=== PATIENT | female | born 1995 | race Two or more races ===

== ENCOUNTER 2022-07-09 21:53 | Emergency (ER) | payer OTHER, SELFPAY ==
[2022-07-09 22:09] VITALS: BP 119/71; PULSE 66; RESP 16; TEMP 36.4; O2SAT 98; BMI 31.8
--- NOTE | 2022-07-09 22:13 | ED_ITS ---
HPI - Seizure General Chief Complaint: Seizure Stated Complaint: seizure Time Seen by Provider: 07/09/22 22:10 Source: patient Mode of arrival: EMS Limitations: no limitations History of Present Illness HPI Narrative: Patient history of bipolar disorder pseudoseizures came here for having seizure- like activity since yesterday without any tonic-clonic activity patient felt that she has a weak unable to respond patient remembers having this episodes no postictal finding no tongue bite patient was talking to her boyfriend while having seizure activity patient on Depakote for depression. Patient been having this kind of episode for a while Related Data Allergies Allergy/AdvReac Type Severity Reaction Status Date / Time No Known Allergies Allergy Unverified 05/16/20 19:35 [No Known Allergies*] Review of Systems Review of Systems: Yes all other systems are reviewed and are negative Physical Exam Vital Signs: Vital Signs: Last Vital Signs Temp 97.6 F 07/09/22 22:09 Pulse 66 07/09/22 22:09 Resp 16 07/09/22 22:09 BP 119/71 07/09/22 22:09 Pulse Ox 98 07/09/22 22:09 O2 Del Method 07/09/22 22:09 BMI result Body Mass Index 31.8 Appearance: Alert. Oriented X3. No acute distress. Eyes: PERRLA, No Nystagmus ENT: Pharynx normal. Oral Mucosa moist no tongue biting Neck: Normal inspection. Neck supple. CVS: Normal heart rate and rhythm. Pulses normal. Respiratory: No respiratory distress. Equal air entry bilateral, no wheezing/rales/rhonchi Abdomen: Soft and nontender. Bowel sounds are present, no mass palpable, no CVA tenderness Skin: Skin warm and dry. Normal skin color. Normal skin turgor. Extremities: No lower extremity edema. No calf tenderness Neuro: Oriented X 3. No motor deficit. No sensory deficit.No cerebellar signs , cranial nerves II-XII intact MDM - Seizure MDM Narrative Medical decision making narrative: Patient symptoms likely from pseudo-seizure, and anxiety will check basic labs and give her Ativan Lab Data Attestation: I reviewed the patient's lab results. Result diagrams: 07/09/22 23:02 07/09/22 23:02 Labs: Lab Results 07/09/22 07/09/22 Range/Units 23:02 23:02 WBC 7.7 (4.8-10.8) X10*3/uL RBC 4.30 (4.20-5.50) X10*6/uL Hgb 13.2 (12.0-16.0) g/dl Hct 38.0 (37.0-47.0) % MCV 88.4 (80.0-98.0) fL MCH 30.7 (27.0-33.0) pg MCHC 34.7 (31.0-35.0) g/dl RDW 11.8 (11.0-16.0) % Plt Count 181 (160-400) X10*3/uL MPV 10.3 (9.4-12.3) fL Immature Gran % (Auto) 0.1 (0.0-0.4) % Neut % (Auto) 46.8 (45-73) % Lymph % (Auto) 42.8 H (20-40) % [place] % (Auto) 6.3 (2-11) % Eos % (Auto) 3.6 (0-4) % Baso % (Auto) 0.4 (0-2) % Lymph # (Auto) 3.3 (1.2-4.9) X10*3/uL [place] # (Auto) 0.5 (0.1-1.2) X10*3/uL Eos # (Auto) 0.3 (0.0-0.4) X10*3/uL Baso # (Auto) 0.0 (0.0-0.2) X10*3/uL Abs Immat Gran (auto) 0.01 (0.00-0.03) X10*3/uL Absolute Neuts (auto) 3.6 (2.0-8.3) x10*3/uL Absolute Nucleated RBC 0.000 (0.0-0.012) X10*3/uL Nucleated RBC % (auto) 0.0 (0.0-0.2) /100WBC Sodium 141 (135-145) mmol/L Potassium 3.8 (3.3-5.1) mmol/L Chloride 106 (96-108) mmol/L Carbon Dioxide 23 (22-29) mmol/L Anion Gap 16 (12-20) BUN 16 (9-16) mg/dL Creatinine 0.65 (0.5-1.4) mg/dL Estim Creat Clear Calc 131.5 Estimated GFR > 60 Random Glucose 83 (60-115) mg/dL Calcium 8.6 (8.4-10.2) mg/dL Total Bilirubin 0.2 (0.0-1.0) mg/dL AST 11 (5-31) U/L ALT 9 (0-31) U/L Alkaline Phosphatase 68 (39-117) U/L Total Protein 6.1 L (6.5-8.0) g/dL Albumin 3.9 (3.5-5.0) g/dL Discharge Plan Discharge Clinical Impression: Psychiatric pseudoseizure Patient Disposition: Home, Self-Care Instructions: Nonepileptic Seizures (ED), Conversion Disorder (ED) Additional Instructions: you Do not have any epilepsy you have stress-induced seizure continue medications as prescribed and follow with PCP
[2022-07-09 23:06] LABS: MANUAL DIFF FLAG NO
[2022-07-09 23:07] LABS: Basophils Percent Auto 0.4 % (0-2); Eosinophils Absolute Auto 0.3 X10*3/uL (0.0-0.4); Eosinophils Percent Auto 3.6 % (0-4); Hemoglobin 13.2 g/dl (12.0-16.0); Imm Gran Abs Auto 0.01 X10*3/uL (0.00-0.03); Imm Gran Pct Auto 0.1 % (0.0-0.4); Lymphocytes Absolute Auto 3.3 X10*3/uL (1.2-4.9); Lymphocytes Percent Auto 42.8 % (20-40); Mean Corpuscular HGB Conc 34.7 g/dl (31.0-35.0); Mean Corpuscular Hemoglobin 30.7 pg (27.0-33.0); Mean Corpuscular Volume 88.4 fL (80.0-98.0); Mean Platelet Volume 10.3 fL (9.4-12.3); Monocytes Absolute Auto 0.5 X10*3/uL (0.1-1.2); Monocytes Percent Auto 6.3 % (2-11); Neutrophils Absolute Auto 3.6 x10*3/uL (2.0-8.3); Neutrophils Percent Auto 46.8 % (45-73); Platelet Count 181 X10*3/uL (160-400); Red Cell Distribution Width 11.8 % (11.0-16.0); White Blood Count 7.7 X10*3/uL (4.8-10.8)
[2022-07-09 23:22] LABS: Alanine Aminotransferase 9 U/L (0-31); Albumin Level 3.9 g/dL (3.5-5.0); Alkaline Phosphatase 68 U/L (39-117); Anion Gap 16 (12-20); Aspartate Amino Transferase 11 U/L (5-31); Bilirubin Total 0.2 mg/dL (0.0-1.0); Blood Urea Nitrogen 16 mg/dL (9-16); Calcium 8.6 mg/dL (8.4-10.2); Carbon Dioxide 23 mmol/L (22-29); Chloride 106 mmol/L (96-108); Creatinine Clr Calc Pharmacy 131.5; Estimated Glomerular Filt Rate > 60; Glucose Random 83 mg/dL (60-115); Potassium 3.8 mmol/L (3.3-5.1); Sodium 141 mmol/L (135-145); Total Protein 6.1 g/dL (6.5-8.0)
[2022-07-09 23:47] LABS: Valproate 54.1 mcg/mL (50.0-100.0)
[2022-07-09] MEDS: LORazepam 1 MG TABLET PO (23:57)
[2022-07-10 00:36] VITALS: BP 118/62; PULSE 82; RESP 16; TEMP 36.7; O2SAT 97
== END 2022-07-10 00:37 | disposition home or self-care (01) ==
PROVIDERS: Emergency Provider Internal Medicine
DX: F44.5 Conversion disorder with seizures or convulsions (principal); F31.9 Bipolar disorder, unspecified; Z79.899 Other long term (current) drug therapy
CPT/HCPCS: 36415; 80053; 80164; 85025; 99283; 99284

== ENCOUNTER 2025-01-22 10:36 | Emergency (ER) | payer OTHER, SELFPAY ==
[2025-01-22 10:39] VITALS: BP 130/78; PULSE 107; RESP 16; TEMP 36.3; O2SAT 97; BMI 29.4
--- NOTE | 2025-01-22 10:56 | ED.GENADULT ---
HPI - General Adult General Chief complaint: General Medical Stated complaint: Feels Like Passing Out Time Seen by Provider: 01/22/25 10:56 Source: patient, RN notes reviewed and old records reviewed Mode of arrival: ambulatory Limitations: no limitations History of Present Illness ED Provider: Alka RED narrative: Patient is a 29-year-old female presenting to the emergency department requesting evaluation for sexually transmitted infections. Complains of genital discomfort, is unsure of drainage or discharge. Symptoms for a while, when asked to clarify patient states maybe several weeks. Reports multiple partners, is not using barrier protection. Denies fevers, chills, body aches. Patient guarded, providing limited information/past medical history. MD complaint: concern for STI Onset (ago): week(s) Related Data Previous Rx's ?Medication ?Instructions ?Recorded doxycycline hyclate 100 mg capsule 100 mg PO BID #13 caps 01/22/25 metronidazole 500 mg tablet 500 mg PO BID #14 tabs 01/22/25 Allergies Allergy/AdvReac Type Severity Reaction Status Date / Time No Known Allergies Allergy Verified 01/22/25 10:42 [No Known Allergies*] Review of Systems Review of Systems: As per HPI Yes all other systems are reviewed and are negative PMFSH Social History Social History Advance Directives: No Advance Directives Information Provided: No Do you have a plan to hurt others: No Plan Physical Exam ED Vital Signs: Vital Signs - 24 hr 01/22/25 10:39 01/22/25 12:32 Temperature 97.3 F 97.9 F Pulse Rate 107 H 103 H Respiratory Rate 16 16 Blood Pressure 130/78 128/70 Pulse Oximetry 97 98 Oxygen Delivery Method Room Air Room Air BMI result Body Mass Index 29.4 Vital signs have been reviewed and appear to be correct. Blood pressure normal. Heart rate slightly tachycardic. Respiratory rate normal. Temperature normal. Oxygen saturation normal. Other: Pelvic exam chaperoned by JAGDEEP Reyna External Female Exam: normal external appearance Speculum Exam - Vagina: normal appearance of the vagina Speculum Exam - Cervix: normal appearance of the cervix, Cervical os closed, Abnormal cervical discharge present (bloody/yellow discharge), no lesions and Cervical tenderness present Bimanual exam- vagina & uterus: Cervical tenderness present Medications Administered Discontinued Medications Generic Name Dose Route Start Last Admin Trade Name Tiara PRN Reason Stop Dose Admin Ceftriaxone Sodium 500 mg/ 0 mg 01/22/25 12:00 01/22/25 12:49 Lidocaine HCl 1 ml IM 01/22/25 12:01 1 kit ONCE ONE Administration Doxycycline Monohydrate 100 mg 01/22/25 12:00 01/22/25 12:49 Doxycycline Monohydrate 100 Mg Capsule PO 01/22/25 12:01 100 mg ONCE ONE Administration Medical Decision Making Medical Decision Making [facility] Narrative: Patient is a 29-year-old female presenting to the emergency department requesting evaluation for sexually transmitted infections. On exam patient is awake, A+Ox3, VS WNL, afebrile, normal neurological exam without focal deficits, physical exam findings as above. Given reported symptoms and physical exam findings, initial differential includes but is not limited to STI, UTI. Serology positive for trichamonas and BV, patient also treated empirically for gonorrhea and chlamydia. UA notable for 2+ leukocytes, negative nitrites, 11-20 wbc's, however, 6-10 epithelials feel this likely represents contamination not acute UTI. Will treat patient with metronidazole. Discussed avoiding intercourse until 7 days after completion of treatment with antibiotics, also advised patient to notify any sexual partners that she tested positive for Trichomonas. Patient will be updated with any positive results of CT NG. Return precautions discussed. Patient verbalized understanding of and agreement with plan. Differential Diagnosis Differential Diagnoses: The differential diagnosis associated with the presentation includes As per [facility] Admission/Observation Consideration of admission/observation: Escalation of care including admission/observation considered Patient would have been admitted to the hospital had their work up had any findings where hospital admission was appropriate and their clinical presentation warranted hospital admission. Lab Data [facility] Lab Attestation statement: I reviewed the patient's lab results. as per [facility] Labs: Lab Results 01/22/25 01/22/25 Range/Units 11:33 12:28 Urine Color Dark Yellow Urine Appearance Clear Urine pH 6.0 (5.0-9.0) Ur Specific [place] 1.020 (1.005-1.025) Urine Protein Trace (Neg-Trace) mg/dL Urine Glucose (UA) Negative (Negative) mg/dL Urine Ketones 15 (Negative) mg/dL Urine Blood Trace H (Negative) Urine Nitrite Negative (Negative) Ur Leukocyte Esterase Moderate (2+) H (Negative) Urine RBC 0-2 (0-2) /HPF Urine WBC 11-20 H (0-5) /HPF Ur Squamous Epith Cells 6-10 (0-2) /HPF Urine Bacteria None Seen (None Seen) Hyaline Casts 0-2 (0-2) /LPF Urine Test NEGATIVE (NEGATIVE) Hepatitis A IgM Ab Nonreactive (Nonreactive) Hep Bs Antigen Negative (Negative) Hep Bs Antibody REACTIVE (Nonreactive) Hep B Core Total Ab Nonreactive (Nonreactive) Hepatitis C Ab (EIA) Nonreactive (Nonreactive) HIV 1&2 Ab/P24 Ag 4thGn Nonreactive (Nonreactive) T. vaginalis (PCR) DETECTED A (Not Detect) Bact vaginosis (PCR) POSITIVE A (Negative) C. krusei/glabrata (PCR) NOT DETECTED (Not Detect) [place] group (PCR) NOT DETECTED (Not Detect) External Record Review External record reviewed: Inpatient record, Office record and Outpatient record Prescription Management I considered prescription management with: Antibiotic Discharge Plan Discharge Clinical Impression: Infection due to trichomonas, Bacterial vaginosis Patient Disposition: Home, Self-Care Instructions: Sexually Transmitted Diseases (ED), Safe Sex Practices (ED) Additional Instructions: You were found to have a sexually transmitted infection or concern for sexually transmitted infection on your visit today. You were given medications to treat you in the Emergency Department but if you were given antibiotics to take at home it is important you finish all these medications. Your sexual partners need to be advised they should seek care as well. It is important you abstain from sexual activity while you are on your antibiotics or having active symptoms. We will notify you of any POSITIVE pending results. For further testing including HIV and follow up for your visit you can reach out to your primary care doctor, [facility], or [facility]. [facility] [place] [phone] [place] [address] [phone] Prescriptions: New doxycycline hyclate 100 mg capsule 100 mg PO BID Qty: 13 0RF metronidazole 500 mg tablet 500 mg PO BID Qty: 14 0RF Print Language: Unable To Collect
[2025-01-22 12:14] LABS: HBS Num1 32.22 mIU/mL (0-7.99); HBc Num1 0.06 S/CO (0.00-0.79); HBsAGNum1 0.34 S/CO (0.00-0.99); HIV AB/AG Nonreactive (Nonreactive); HIV Num 1 0.07 S/CO (0.00-0.99); Hepatitis A Antibody IgM 0.22 Index (0-0.79); Hepatitis B Core Antibody Nonreactive (Nonreactive); Hepatitis B Surface Antigen Negative (Negative); ~HepC Num1 0.12 S/CO (0.00-0.79); ~Hepatitis A Antibody IgM Nonreactive (Nonreactive); ~Hepatitis B Surface Antibody REACTIVE (Nonreactive); ~Hepatitis C Antibody Nonreactive (Nonreactive)
[2025-01-22 12:32] VITALS: BP 128/70; PULSE 103; RESP 16; TEMP 36.6; O2SAT 98
[2025-01-22 12:37] LABS: Appearance Urine Clear; Color Urine Dark Yellow; Glucose Urine UA Negative (Negative); Leukocyte Esterase Urine Moderate (2+) (Negative); Nitrite Urine Negative (Negative); UMIC TRIGGER UACC YES; Urine Blood Trace (Negative); Urine Ketones 15 mg/dL (Negative); Urine Protein Trace mg/dL (Neg-Trace)
[2025-01-22 12:38] LABS: UPreg QC Valid YES; Urine Pregnancy NEGATIVE (NEGATIVE)
[2025-01-22] MEDS: cefTRIAXone sodium 500 MG, Lidocaine HCl 1 % MPF 1 ML IM (12:49)
[2025-01-22] MEDS: Doxycycline Monohydrate 100 MG CAPSULE PO (12:49)
[2025-01-22 13:01] LABS: Bacterial Vaginosis PCR POSITIVE (Negative); Candida Group PCR NOT DETECTED (Not Detect); Candida glab krusei PCR NOT DETECTED (Not Detect); Trichomonas vaginalis PCR DETECTED (Not Detect)
[2025-01-22 13:06] LABS: Bacteria Urine None Seen (None Seen); Hyaline Casts Urine 0-2 /LPF (0-2); RBC Urine 0-2 /HPF (0-2); UACC Culture Trigger YES
[2025-01-22 13:31] LABS: CT PCR NOT DETECTED (Not Detect.); NG PCR NOT DETECTED (Not Detect.)
[2025-01-22 14:17] VITALS: BP 128/70; PULSE 103; RESP 16; TEMP 36.6; O2SAT 98
[2025-01-24 10:29] LABS: RPR Rapid Plasma Reagin NON-REACTIVE (NON-REACTIVE)
== END 2025-01-22 14:18 | disposition home or self-care (01) ==
PROVIDERS: Registered Nurse Emergency; Emergency Provider Emergency Medicine
DX: A59.01 Trichomonal vulvovaginitis (principal); R10.2 Pelvic and perineal pain; R00.0 Tachycardia, unspecified
CPT/HCPCS: 36415; 81001; 81025; 81515; 86592; 86704; 86706; 86709; 86803; 87086; 87147; 87340; 87389; 87491; 87591; 96372; 99283; 99284; J0696; J2003